=== PATIENT | male | born 1970 | race Caucasian/White ===

== ENCOUNTER 2017-06-29 07:47 | Outpatient (CLI) | payer BC ==
--- NOTE | 2017-06-29 09:16 | MRI ---
MRI LUMBAR SPINE WITHOUT CONTRAST: Technique: Multiplanar, multisequential imaging of the lumbar spine obtained. History: Low back pain. Right lower extremity pain. FINDINGS: Lumbar vertebrae maintain normal height and alignment. Disc spaces are normally maintained and exhib it normal signal. No evidence of disc bulge or protrusion at L1-2, L2-3, or L3-4 levels. No central c anal or foraminal stenosis at any of these levels. L4-5: Mild disc bulge abuts the anterior thecal sac. There is mild facet arthrosis and hypertrophy. N o significant central canal stenosis. Asymmetric disc bulge does project into the right foramina and there is combined facet hypertrophy which does result in right foraminal stenosis at this level. Thes e changes appear to contact the exiting right L4 nerve root. L5-S1: No significant disc bulge or protrusion. There is facet arthrosis although no central canal st enosis. A synovial cyst projects laterally from the left facet and measures approximately 1.0 cm. It does mildly encroach into the left foramina and does combine with disc bulge and facet hypertrophy to produce left foraminal stenosis. IMPRESSION: 1. Asymmetric disc bulge to the right at L4-5 with right foraminal encroachment as described above. 2. Synovial cyst combined with facet hypertrophy and disc bulge resulting in left foraminal stenosis at L5-S1 as described above. POS: [facility]
== END 2017-06-29 07:48 | disposition home or self-care (01) ==
LOC: MRI 07:47
PROVIDERS: ATTEND Chiropractor
DX: M54.5 Low back pain (principal); M79.661 Pain in right lower leg; M51.86 Other intervertebral disc disorders, lumbar region
CPT/HCPCS: 72148

== ENCOUNTER 2018-03-08 15:02 | Outpatient (CLI) | payer BC ==
[~2018-03-08 15:02] MED LIST: Iopamidol 370 76% 100 ML VIAL ONE
--- NOTE | 2018-03-08 17:25 | CT ---
NECK CT WITH CONTRAST: 03/08/18 CLINICAL HISTORY: Left sided neck mass. No prior imaging comparisons are available. FINDINGS: There is an oblong hypodense mass emanating from the inferior aspect of the left parotid gland approx imately 2.4 cm in craniocaudal dimension x 1.5 cm AP x 0.9 cm transverse. Evaluation is limited due t o prominent beam hardening/streak artifact from the adjacent oral cavity and dental hardware. This fi nding does appear to arise from or immediately abut the inferior aspect of the left parotid gland and may therefore relate to a hypodense mass versus cystic lesion, difficult to further discern on the b asis of this exam. No obvious mass effect at the nasopharynx. There is symmetric size with mild fullness of each palatin e tonsil, nonspecific. Borderline sized bilateral cervical chain lymph nodes are seen. The thyroid gl and is incompletely evaluated due to prominent streak artifact of this region. No significant patholo gy at the imaged upper lung zones. The osseous structures reveal no acute process. IMPRESSION: Hypodense mass adjacent the inferior aspect of the left parotid gland which may be related to a cysti c or solid hypodense lesion favoring a primary salivary gland lesion. Evaluation is limited on the ba ses of this exam and therefore, for further characterization, soft tissue MRI of the neck with and wi thout contrast would prove useful for additional imaging evaluation. POS: [facility]
== END 2018-03-08 15:03 | disposition home or self-care (01) ==
LOC: SCSCT 15:02
PROVIDERS: ATTEND Specialist
DX: R59.0 Localized enlarged lymph nodes (principal)
CPT/HCPCS: 70492

== ENCOUNTER 2018-03-20 08:33 | Day surgery (SDC) | payer BC ==
[2018-03-15 12:13] VITALS: BMI 28.1
[2018-03-20] MEDS ORDERED: Sodium Bicarbonate 2.5 MEQ/5 ML VIAL ONE (08:59)
[2018-03-20] MEDS ORDERED: Lidocaine 1% PF 5 ML VIAL ONE (08:59)
[2018-03-20 10:41] VITALS: BP 127/82; TEMP 97.8
--- NOTE | 2018-03-20 12:00 | ULT ---
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 FINDINGS: Cystic mass in the anjel-parotid region is demonstrated sonographically. PROCEDURE: Informed consent was obtained. Patient was escorted to the procedural suite and placed in supine posi tion with the neck laterally flexed to the right. The left neck was prepped and draped in standard st erile fashion. Topical anesthesia was achieved with buffered 1% Lidocaine. The regional vasculature w as noted sonographically and a safe approach to the cystic mass was planned. Ultrasound guidance was subsequently performed after standard sterile prepping and draping and topical anesthesia was achieve d and three separate FNA procedures of the cystic mass left neck were performed. Imaging was stored f or documentation. The specimens were provided to the pathology department for further analysis and we re reviewed by the attending pathologist, Macario Lewis, prior to termination of the procedure. All de vices were removed from the patient. The patient tolerated the procedure well without evidence of com plication. Post procedural imaging revealed no evidence of hematoma as well as a markedly reduced vol ume of the cystic mass of the left neck. IMPRESSION: Technically successful FNA of left neck mass. Pathology results are pending. POS: [facility]
== END 2018-03-20 10:25 | disposition home or self-care (01) ==
LOC: ULT 08:33
PROVIDERS: ATTEND Specialist
PROC: 0HB4XZX Excision of Neck Skin, External Approach, Diagnostic (ICD-10-PCS; principal; 2018-03-20)
DX: R22.0 Localized swelling, mass and lump, head (principal)
CPT/HCPCS: 10022; 76942; 88173; 88333; J2001